=== PATIENT | female | born 1995 | race Two or more races ===

== ENCOUNTER → 2025-04-29 | Outpatient (CLI) | payer MEDICAID, SELFPAY ==
--- NOTE | 2025-04-29 09:30 | XR_ITS ---
Examination: Esophagram standard Fluoroscopy Upright PA chest single view Upright soft tissue lateral neck single view 16 spot fluoroscopic films of the esophagus Date and time: April 29, 2025 0959 hours INDICATIONS: Choking difficulty swallowing vomiting beginning 2 years ago TECHNIQUE AND FINDINGS: Upright PA chest single view demonstrates normal heart size, lungs are clear Soft tissue lateral neck demonstrates no prevertebral soft tissue prominence Patient swallowed thin barium with primary peristaltic esophageal waves noted There is moderate intermittent gastroesophageal reflux There is no stricture the gastroesophageal junction. Fluoroscopy 0.11 minute 16 spot fluoroscopic films of the esophagus There is a small diverticulum 5 mm at the gastroesophageal junction IMPRESSION: Moderate intermittent gastroesophageal reflux There is no stricture the gastroesophageal junction Consider endoscopy follow-up to exclude differentiate 5 mm diverticulum from ulceration at the GE junction
== END | disposition home or self-care (01) ==
LOC: CDIM 09:53
PROVIDERS: PCP Nurse Practitioner Family; Referring Provider Nurse Practitioner Family; Visit Provider Nurse Practitioner Family
DX: K21.9 Gastro-esophageal reflux disease without esophagitis (principal)
CPT/HCPCS: 74220; A4649